=== PATIENT | female | born 1980 | race American Indian/Alaskan Native ===

== ENCOUNTER 2021-12-03 10:25 | Emergency (ER) | payer BC ==
--- NOTE | 2021-12-03 11:57 | Emergency Department Report ---
ED Abdominal Pain HPI - General Chief Complaint: Nausea/Vomiting/Diarrhea Stated Complaint: STOMACH PAIN/VOMITING/NAUSEA/DIZZINESS Source: patient Mode of arrival: Ambulatory Limitations: No Limitations - History of Present Illness Initial Comments: 41-year-old female presents to the ED complaining of abdominal pain x1 year. Patient states over the last 3 days that abdominal pain has increased. She states she went to urgent care center on yesterday and was told to come to the ED. patient states denies any prior medication to ED arrival. States that she was evaluate at [facility] for similar symptoms a year ago. Patient states pain has resolved at present time concerned that pain is intermittent. Patient is alert and oriented x3. No acute distress noted. No ill appearance noted. Denies any chest pain shortness of breath nausea vomiting or diarrhea. MD Complaint: abdominal pain Onset/Timin -: days(s) Location: diffuse Severity scale (0 -10): 5 Quality: aching Improves With: nothing Worsens With: nothing Associated Symptoms: nausea, vomiting, diarrhea Treatments Prior to Arrival: NSAIDs - Related Data Previous Rx's Medication Instructions Recorded Last Taken Type Acetaminophen/Codeine [Tylenol 1 tab PO Q6H PRN 3 Days #12 tab 12/03/21 Unknown Rx /Codeine # 3 tab] Dicyclomine [Bentyl] 20 mg PO QID 5 Days #20 tablet 12/03/21 Unknown Rx Ondansetron [Zofran ODT TAB] 8 mg PO Q8HR 3 Days #12 tab.rapdis 12/03/21 Unknown Rx Allergies Allergy/AdvReac Type Severity Reaction Status Date / Time No Known Allergies Allergy Verified 12/03/21 10:32 ED Review of Systems ROS: Stated complaint: STOMACH PAIN/VOMITING/NAUSEA/DIZZINESS Other details as noted in HPI Constitutional: denies: chills, fever Eyes: denies: eye pain, eye discharge, vision change ENT: denies: ear pain, throat pain Respiratory: denies: cough, shortness of breath, wheezing Cardiovascular: denies: chest pain, palpitations Endocrine: no symptoms reported Gastrointestinal: denies: abdominal pain, nausea, diarrhea Genitourinary: denies: urgency, dysuria, discharge Musculoskeletal: denies: back pain, joint swelling, arthralgia Skin: denies: rash, lesions Neurological: denies: headache, weakness, paresthesias Psychiatric: denies: anxiety, depression Hematological/Lymphatic: denies: easy bleeding, easy bruising ED Past Medical Hx - Past Medical History Previous Medical History?: No - Surgical History Past Surgical History?: Yes Additional Surgical History: appendectomy - Social History Smoking Status: Never Smoker Substance Use Type: None - Medications Home Medications: Home Medications Medication Instructions Recorded Confirmed Last Taken Type Acetaminophen/Codeine [Tylenol 1 tab PO Q6H PRN 3 Days #12 tab 12/03/21 Unknown Rx /Codeine # 3 tab] Dicyclomine [Bentyl] 20 mg PO QID 5 Days #20 tablet 12/03/21 Unknown Rx Ondansetron [Zofran ODT TAB] 8 mg PO Q8HR 3 Days #12 tab.rapdis 12/03/21 Unknown Rx ED Physical Exam - General Limitations: No Limitations General appearance: alert, in no apparent distress - Head Head exam: Present: atraumatic, normocephalic - Eye Eye exam: Present: normal appearance - ENT ENT exam: Present: mucous membranes moist - Neck Neck exam: Present: normal inspection - Respiratory Respiratory exam: Present: normal lung sounds bilaterally. Absent: respiratory distress - Cardiovascular Cardiovascular Exam: Present: regular rate, normal rhythm. Absent: systolic murmur, diastolic murmur, rubs, gallop - GI/Abdominal GI/Abdominal exam: Present: soft, normal bowel sounds - Extremities Exam Extremities exam: Present: normal inspection - Back Exam Back exam: Present: normal inspection - Neurological Exam Neurological exam: Present: alert, oriented X3 - Psychiatric Psychiatric exam: Present: normal affect, normal mood - Skin Skin exam: Present: warm, dry, intact, normal color. Absent: rash ED Course Vital Signs 12/03/21 12/03/21 10:34 11:50 Temperature 98.3 F 98.2 F Pulse Rate 74 77 Respiratory 18 20 Rate Blood Pressure 147/82 Blood Pressure 132/84 [Left] O2 Sat by Pulse 100 99 Oximetry ED Medical Decision Making - Lab Data Result diagrams: 12/03/21 12:28 12/03/21 12:28 - Medical Decision Making 41-year-old female presents to the ED complaining of abdominal pain x1 year. Patient states over the last 3 days that abdominal pain has increased. She states she went to urgent care center on yesterday and was told to come to the ED. patient states denies any prior medication to ED arrival. States that she was evaluate at [facility] for similar symptoms a year ago. Patient states pain has resolved at present time concerned that pain is intermittent. Patient is alert and oriented x3. No acute distress noted. No ill appearance noted. Denies any chest pain shortness of breath nausea vomiting or diarrhea. Physical examination is unremarkable. Patient has no tenderness upon palpation. Abnormal Lab Results 12/03/21 12/03/21 12/03/21 12:28 12:28 12:28 WBC 5.4 RBC 4.06 Hgb 10.8 Hct 34.0 MCV 84 MCH 27 L MCHC 32 RDW 16.3 H Plt Count 334 Lymph % (Auto) 33.3 [place] % (Auto) 6.6 Eos % (Auto) 0.8 Baso % (Auto) 0.7 Lymph # (Auto) 1.8 [place] # (Auto) 0.4 Eos # (Auto) 0.0 Baso # (Auto) 0.0 Seg Neutrophils % 58.6 Seg Neutrophils # 3.1 Sodium 137 Potassium 4.9 Chloride 102.7 Carbon Dioxide 23 Anion Gap 16 BUN 8 Creatinine 0.4 L Estimated GFR > 60 BUN/Creatinine Ratio 20 Glucose 101 H Calcium 9.4 Total Bilirubin 0.20 AST 10 ALT 10 Alkaline Phosphatase 75 Total Protein 6.9 Albumin 4.0 Albumin/Globulin Ratio 1.4 Amylase 33 Lipase 10 L HCG, Quant < 2 Urine Color Urine Turbidity Urine pH Ur Specific [place] Urine Protein Urine Glucose (UA) Urine Ketones Urine Blood Urine Nitrite Urine Bilirubin Urine Urobilinogen Ur Leukocyte Esterase Urine WBC (Auto) Urine RBC (Auto) U Epithel Cells (Auto) Urine Mucus 12/03/21 Unknown WBC RBC Hgb Hct MCV MCH MCHC RDW Plt Count Lymph % (Auto) [place] % (Auto) Eos % (Auto) Baso % (Auto) Lymph # (Auto) [place] # (Auto) Eos # (Auto) Baso # (Auto) Seg Neutrophils % Seg Neutrophils # Sodium Potassium Chloride Carbon Dioxide Anion Gap BUN Creatinine Estimated GFR BUN/Creatinine Ratio Glucose Calcium Total Bilirubin AST ALT Alkaline Phosphatase Total Protein Albumin Albumin/Globulin Ratio Amylase Lipase HCG, Quant Urine Color Yellow Urine Turbidity Clear Urine pH 9.0 H Ur Specific [place] 1.015 Urine Protein <15 mg/dl Urine Glucose (UA) Neg Urine Ketones Neg Urine Blood Neg Urine Nitrite Neg Urine Bilirubin Neg Urine Urobilinogen < 2.0 Ur Leukocyte Esterase Neg Urine WBC (Auto) 1.0 Urine RBC (Auto) 1.0 U Epithel Cells (Auto) 4.0 Urine Mucus Few Critical care attestation.: If time is entered above; I have spent that time in minutes in the direct care of this critically ill patient, excluding procedure time. ED Disposition Clinical Impression: Abdominal pain Qualifiers: Abdominal location: generalized Qualified Code(s): R10.84 - Generalized abdominal pain Disposition: HOME / SELF CARE / HOMELESS Is pt being admited?: No Does the pt Need Aspirin: No Condition: Stable Instructions: Abdominal Pain, Adult, [id number] Additional Instructions: Take medication as prescribed Follow-up with [facility] Return to the ED for any worsening symptom Prescriptions: Dicyclomine [Bentyl] 20 mg PO QID 5 Days #20 tablet Acetaminophen/Codeine [Tylenol /Codeine # 3 tab] 1 tab PO Q6H PRN 3 Days #12 tab PRN Reason: Pain, Mild (1-3) Ondansetron [Zofran ODT TAB] 8 mg PO Q8HR 3 Days #12 tab.rapdis Referrals: [facility] [Provider Group] - 3-5 Days Forms: Work/School Release Form(ED) Time of Disposition: 14:19
[2021-12-03 12:09] VITALS: BP 132/84
[2021-12-03 13:00] LABS: Bilirubin,Urine NEG (Negative); Blood,Urine NEG (Negative); Color,Urine Yellow (Yellow); Mucus,Urine FEW /HPF; Protein,Urine <15 mg/dL mg/dL (Negative); Urobilinogen,Urine < 2.0 mg/dL (<2.0)
[2021-12-03 13:46] LABS: Basophils % (Auto) 0.7 % (0.0-1.8); Eosinophils % (Auto) 0.8 % (0.0-4.3); Hemoglobin 10.8 gm/dl (10.1-14.3); Lymphocytes # (Auto) 1.8 K/mm3 (1.2-5.4); Lymphocytes % (Auto) 33.3 % (13.4-35.0); Mean Corpuscular HGB Conc 32 % (30-34); Mean Corpuscular Volume 84 fl (79-97); Monocytes # (Auto) 0.4 K/mm3 (0.0-0.8); Monocytes % (Auto) 6.6 % (0.0-7.3); Platelet Count 334 K/mm3 (140-440); Red Blood Count 4.06 M/mm3 (3.65-5.03); Red Cell Distribution Width 16.3 % (13.2-15.2)
[2021-12-03 13:54] LABS: Alanine Aminotransferase 10 units/L (7-56); Blood Urea Nitrogen 8 mg/dL (7-17); Calcium 9.4 mg/dL (8.4-10.2); Hemolysis Index 11
[2021-12-03 13:56] LABS: BUN/Creatinine Ratio 20
== END 2021-12-03 14:52 | disposition home or self-care (01) ==
LOC: ED 10:25
DX: R10.9 Unspecified abdominal pain (principal); Z79.899 Other long term (current) drug therapy
CPT/HCPCS: 36415; 80053; 81001; 82150; 83690; 84702; 85025; 99283